=== PATIENT | male | born 1960 | race African-American/Black ===

== ENCOUNTER 2017-10-28 11:12 | Emergency (ER) | payer OTHER ==
[~2017-10-28] VITALS: Ht 167.6 cm; Wt 77.1 kg
[2017-10-28 18:21] VITALS: BP 118/82
== END 2017-10-28 18:30 | disposition home or self-care (01) ==
LOC: ER 11:12
DX: J43.9 Emphysema, unspecified (principal)
CPT/HCPCS: 71046; 87804

== ENCOUNTER 2021-05-15 20:59 | Inpatient (IN) | payer OTHER ==
[~2021-05-15] VITALS: Ht 175.3 cm; Wt 86.9 kg
[2021-05-15 22:01] LABS: Basophils # (auto) 0.1 10 ^3/uL (0-0.2); Basophils % (auto) 0.8 % (0.0-2.0); Eosinophils # (auto) 0.1 10 ^3/uL (0-0.8); Eosinophils % (auto) 0.6 % (0.0-7.0); Hematocrit 42.1 % (41.0-53.0); Hemoglobin 13.8 g/dL (13.5-17.5); Lymphocytes # (auto) 3.4 10 ^3/uL (0.4-5.4); Lymphocytes % (auto) 21.7 % (10.0-50.0); Mean Corpuscular Hemoglobin 35.3 pg (28.0-32.0); Mean Corpuscular Hgb Conc. 32.7 g/dL (32.0-36.0); Mean Corpuscular Volume 107.8 fL (80.0-100.0); Monocytes # (auto) 1.4 10 ^3/uL (0-1.3); Monocytes % (auto) 9.1 % (0.0-12.0); Neutrophils # (auto) 10.7 10 ^3/uL (1.6-8.6); Neutrophils % (auto) 67.8 % (37.0-80.0); Nucleated Red Blood Cells % 1.3 %; Red Cell Distribution Width 14.4 % (11.8-14.3); White Blood Cell 15.8 10^3/uL (4.4-10.8)
[2021-05-15 22:17] LABS: INR 1.32 (0.9-1.15); Partial Thromboplastin Time 24.5 sec (23.6-33.0)
[2021-05-15 22:38] LABS: Alkaline Phosphatase 173 U/L (45-117); Anion Gap 24 (5-15); Aspartate Aminotransferase 99 U/L (15-37); BUN/Creatinine Ratio 15.8; Blood Urea Nitrogen 32 mg/dL (7-18); Carbon Dioxide 19 mmol/L (21-32); Chloride 80 mmol/L (98-107); GFR African American 43 mL/min; GFR Non-African American 36 mL/min; Glucose 132 mg/dL (74-106); Sodium 123 mmol/L (136-145)
[2021-05-15 22:39] LABS: Alanine Aminotransferase 26 U/L (16-61); Albumin 2.2 g/dL (3.4-5.0); Bilirubin, Total 4.2 mg/dL (0.2-1.0); Calcium 7.3 mg/dL (8.5-10.1); Magnesium 1.4 mg/dL (1.6-2.6)
[2021-05-15 22:45] LABS: Potassium 2.5 mmol/L (3.5-5.1)
[2021-05-15] MEDS ORDERED: POTASSIUM CHL 20MEQ/100ML 100 ML IV STA (23:07)
[2021-05-15] MEDS ORDERED: LACTATED RINGER'S 1,000 ML IV ONE (23:15)
[2021-05-15] MEDS: MAGNESIUM SULFATE 1GM/100ML 100 ML IV SCH (23:45)
[2021-05-16] MEDS: MAGNESIUM SULFATE 1GM/100ML 100 ML IV SCH (00:33)
[2021-05-16 00:42] LABS: Lactic Acid w/Reflex 5.7 mmol/L (0.4-2.0)
[2021-05-16] MEDS ORDERED: LACTATED RINGER'S 1,000 ML IV ONE (02:45)
[2021-05-16] MEDS ORDERED: CIPROFLOXACIN 400MG/200ML 200 ML IV ONE (02:45)
[2021-05-16] MEDS ORDERED: metroNIDAZOLE 500MG/100ML 100 ML IV ONE (02:45)
[2021-05-16] MEDS ORDERED: POTASSIUM CHL 20MEQ/100ML 100 ML IV STA (04:34)
[2021-05-16] MEDS ORDERED: ACETAMINOPHEN 325 MG TAB PO PRN (05:00)
[2021-05-16] MEDS ORDERED: DOCUSATE SOD 100 MG CAP PO PRN (05:00)
[2021-05-16] MEDS ORDERED: HYDROcodone-ACET 5/325MG TAB PO PRN (05:00)
[2021-05-16] MEDS ORDERED: ONDANSETRON HCL 4 MG/2 ML VIAL IV PRN (05:00)
[2021-05-16] MEDS: SODIUM CHLORIDE 0.9% 1,000 ML IV SCH ×2 (05:26→17:00)
[2021-05-16 06:10] LABS: Urine Bacteria NONE SEEN /hpf (None Seen); Urine Blood Negative /uL (Negative); Urine Budding Yeast OCCASIONAL /hpf (None Seen); Urine Specific Gravity 1.019 (1.001-1.035); Urine WBC 4 /hpf (0 - 3)
[2021-05-16] MEDS ORDERED: cefTRIAXone 1GM/50ML D5W 50 ML IV ONE (10:45)
[2021-05-16] MEDS: PANTOPRAZOLE 40 MG TAB PO SCH ×2 (10:46→22:31)
[2021-05-16] MEDS: cefTRIAXone 1GM/50ML D5W 50 ML IV SCH (10:46)
[2021-05-16] MEDS: metroNIDAZOLE 500MG/100ML 100 ML IV SCH ×2 (14:38→22:31)
[2021-05-16] MEDS ORDERED: RIV20T PO (15:19)
[2021-05-16] MEDS ORDERED: POTA-220 PO (15:19)
[2021-05-16 17:10] VITALS: BP 110/73
[2021-05-16] MEDS ORDERED: RIVAROXABAN 20 MG TAB PO SCH (18:00)
[2021-05-16] MEDS ORDERED: POTASSIUM CHLORIDE 60 MEQ, LIDOCAINE 1% (LOCAL ANESTH.) 6 ML in SODIUM CHL 0.9% 500 ML IV ONE (18:00)
[2021-05-16] MEDS: Ensure HIGH Protein Chocolate 8oz Bottle PO SCH (18:35)
[2021-05-16 19:23] LABS: BUN/Creatinine Ratio 21.4; Calcium 7.1 mg/dL (8.5-10.1)
[2021-05-16 19:39] LABS: Potassium 2.7 mmol/L (3.5-5.1)
[2021-05-16 20:00] VITALS: BP 94/53
[2021-05-16] MEDS: HYDROCORTONE 1% TOPICAL CREAM 30 GM TUBE TOP SCH (22:00)
[2021-05-16 23:06] VITALS: BP 94/53
[2021-05-17] MEDS: SODIUM CHLORIDE 0.9% 1,000 ML IV SCH (04:00)
[2021-05-17 05:16] VITALS: BP 92/62
[2021-05-17] MEDS: metroNIDAZOLE 500MG/100ML 100 ML IV SCH ×3 (05:40→23:45)
[2021-05-17 05:46] LABS: Basophils # (auto) 0 10 ^3/uL (0-0.2); Eosinophils # (auto) 0.1 10 ^3/uL (0-0.8); Lymphocytes # (auto) 2.3 10 ^3/uL (0.4-5.4); Neutrophils % (auto) 59.6 % (37.0-80.0); Red Cell Distribution Width 14.3 % (11.8-14.3)
[2021-05-17 05:49] LABS: Basophils % (auto) 0.4 % (0.0-2.0); Eosinophils % (auto) 0.6 % (0.0-7.0); Hematocrit 28.7 % (41.0-53.0); Hemoglobin 10.2 g/dL (13.5-17.5); Lymphocytes % (auto) 23.9 % (10.0-50.0); Mean Corpuscular Hemoglobin 37.2 pg (28.0-32.0); Mean Corpuscular Hgb Conc. 35.5 g/dL (32.0-36.0); Monocytes # (auto) 1.5 10 ^3/uL (0-1.3); Monocytes % (auto) 15.5 % (0.0-12.0); Neutrophils # (auto) 5.6 10 ^3/uL (1.6-8.6); Nucleated Red Blood Cells % 1.6 %; Red Blood Cells 2.74 10^6/uL (4.5-5.90); White Blood Cell 9.5 10^3/uL (4.4-10.8)
[2021-05-17 05:55] LABS: INR 1.43 (0.9-1.15)
[2021-05-17 06:28] LABS: Albumin 1.6 g/dL (3.4-5.0); BUN/Creatinine Ratio 20.3; Calcium 7.1 mg/dL (8.5-10.1); Magnesium 1.6 mg/dL (1.6-2.6); Potassium 3.4 mmol/L (3.5-5.1)
[2021-05-17 06:31] LABS: Total Protein 5.1 g/dL (6.4-8.2)
[2021-05-17] MEDS: Ensure HIGH Protein Chocolate 8oz Bottle PO SCH ×3 (08:00→18:28)
[2021-05-17] MEDS: PANTOPRAZOLE 40 MG TAB PO SCH ×2 (08:46→23:45)
[2021-05-17] MEDS: cefTRIAXone 1GM/50ML D5W 50 ML IV SCH (08:46)
[2021-05-17 09:01] VITALS: BP 92/56
[2021-05-17] MEDS: HYDROCORTONE 1% TOPICAL CREAM 30 GM TUBE TOP SCH ×2 (09:08→23:46)
[2021-05-17] MEDS ORDERED: SODIUM CHLORIDE 0.9% 1,000 ML IV SCH (11:00)
[2021-05-17] MEDS ORDERED: POTASSIUM CHL 20 Meq TABLET PO ONE (11:00)
[2021-05-17 13:00] VITALS: BP 95/69
[2021-05-17 17:02] VITALS: BP 100/69
[2021-05-17] MEDS ORDERED: RIVAROXABAN 20 MG TAB PO SCH (18:00)
[2021-05-17 22:00] VITALS: BP 90/59
[2021-05-18 05:00] VITALS: BP 91/61
[2021-05-18] MEDS: metroNIDAZOLE 500MG/100ML 100 ML IV SCH (05:43)
[2021-05-18 05:49] LABS: Basophils # (auto) 0.1 10 ^3/uL (0-0.2); Eosinophils # (auto) 0.1 10 ^3/uL (0-0.8); Hemoglobin 9.3 g/dL (13.5-17.5); Monocytes # (auto) 1.5 10 ^3/uL (0-1.3); White Blood Cell 10.3 10^3/uL (4.4-10.8)
[2021-05-18 05:54] LABS: Basophils % (auto) 0.6 % (0.0-2.0); Eosinophils % (auto) 0.7 % (0.0-7.0); Hematocrit 26.6 % (41.0-53.0); Lymphocytes # (auto) 3.3 10 ^3/uL (0.4-5.4); Lymphocytes % (auto) 32.1 % (10.0-50.0); Mean Corpuscular Hemoglobin 36.9 pg (28.0-32.0); Mean Corpuscular Volume 105.3 fL (80.0-100.0); Monocytes % (auto) 14.8 % (0.0-12.0); Neutrophils # (auto) 5.3 10 ^3/uL (1.6-8.6); Neutrophils % (auto) 51.8 % (37.0-80.0); Nucleated Red Blood Cells % 1.5 %; Red Blood Cells 2.52 10^6/uL (4.5-5.90); Red Cell Distribution Width 14.4 % (11.8-14.3)
[2021-05-18 06:20] LABS: Potassium 3.2 mmol/L (3.5-5.1)
[2021-05-18 06:29] LABS: Calcium 7.1 mg/dL (8.5-10.1)
[2021-05-18] MEDS: Ensure HIGH Protein Chocolate 8oz Bottle PO SCH ×2 (07:52→12:57)
[2021-05-18] MEDS: cefTRIAXone 1GM/50ML D5W 50 ML IV SCH (08:56)
[2021-05-18 09:00] VITALS: BP 107/76
[2021-05-18] MEDS: PANTOPRAZOLE 40 MG TAB PO SCH (09:29)
[2021-05-18] MEDS: HYDROCORTONE 1% TOPICAL CREAM 30 GM TUBE TOP SCH (09:30)
[2021-05-18] MEDS ORDERED: POTASSIUM CHL 20 Meq TABLET PO ONE (11:00)
== END 2021-05-18 12:57 | disposition home or self-care (01) | DRG 871 ==
LOC: EDBD 20:59 → ER 21:00 → OVERFLOW 05-16 04:51 → CENTRAL 05-16 16:46
PROVIDERS: ADMIT Nurse Practitioner; ATTEND Internal Medicine
DX: A41.9 Sepsis, unspecified organism (principal); E43 Unspecified severe protein-calorie malnutrition; N17.0 Acute kidney failure with tubular necrosis; E87.2 Acidosis; D68.9 Coagulation defect, unspecified; E87.1 Hypo-osmolality and hyponatremia; K57.32 Diverticulitis of large intestine without perforation or abscess without bleeding; I82.412 Acute embolism and thrombosis of left femoral vein; E87.8 Other disorders of electrolyte and fluid balance, not elsewhere classified; E87.6 Hypokalemia; E83.42 Hypomagnesemia; N18.30 Chronic kidney disease, stage 3 unspecified; L30.9 Dermatitis, unspecified; F10.10 Alcohol abuse, uncomplicated; Z20.822 Contact with and (suspected) exposure to COVID-19; F17.210 Nicotine dependence, cigarettes, uncomplicated; K70.40 Alcoholic hepatic failure without coma; K76.0 Fatty (change of) liver, not elsewhere classified; M89.8X9 Other specified disorders of bone, unspecified site; Z86.718 Personal history of other venous thrombosis and embolism; Z86.711 Personal history of pulmonary embolism
CPT/HCPCS: 36415; 71045; 74176; 78306; 80048; 80053; 81001; 83605; 83735; 83880; 84132; 84484; 85025; 85379; 85610; 85730; 87040; 87076; 87426; 93005; 93970; 96365; 96366; 96367; 96368; G0378; J0696; J2001; J3480; J3490

== ENCOUNTER 2021-06-25 14:27 | Inpatient (IN) | payer OTHER ==
[~2021-06-25] VITALS: Ht 180.3 cm; Wt 88.5 kg
[~2021-06-25 14:27] MED LIST: POTA-220 PO; RIV20T PO
[2021-06-25] MEDS ORDERED: NOREPINEPHRINE 8 MG/250ML KIT 250 ML IV ONE (14:39)
[2021-06-25] MEDS ORDERED: DOPamine 1600MCG/ML D5W 250 ML IV ONE (14:39)
[2021-06-25] MEDS ORDERED: MIDAZOLAM DRIP 50 mg/50mL 50 ML IV SCH (14:45)
[2021-06-25] MEDS ORDERED: fentaNYL Drip 2500mCg/250mlNS 250 ML IV SCH (14:45)
[2021-06-25] MEDS ORDERED: NOREPINEPHRINE 8 MG/250ML KIT 250 ML IV SCH ×2 (14:45→15:00)
[2021-06-25] MEDS ORDERED: DOPamine 1600MCG/ML D5W 250 ML IV SCH (15:00)
[2021-06-25] MEDS: PHENYLEPHRINE IV 250 ML IV SCH ×2 (15:00→17:11)
[2021-06-25] MEDS ORDERED: PHENYLEPHRINE IV 250 ML IV ONE (15:02)
[2021-06-25 15:25] LABS: Hematocrit 36.4 % (41.0-53.0); Mean Corpuscular Hemoglobin 36.5 pg (28.0-32.0); Mean Corpuscular Hgb Conc. 30.1 g/dL (32.0-36.0); Mean Corpuscular Volume 121.3 fL (80.0-100.0); Red Cell Distribution Width 20.8 % (11.8-14.3); White Blood Cell 18.9 10^3/uL (4.4-10.8)
[2021-06-25 15:26] LABS: Basophils % (manual) 0 (0.0-2.0); Blast Cells 0; Eosinophils % (manual) 0 (0-7); Myelocytes % 0; Promyelocytes % 0; Reactive Lymphocytes 0
[2021-06-25 15:31] LABS: INR 1.86 (0.9-1.15); Partial Thromboplastin Time 45.2 sec (23.6-33.0)
[2021-06-25 15:33] LABS: Alanine Aminotransferase 47 U/L (16-61); Albumin 1.5 g/dL (3.4-5.0); Anion Gap 30 (5-15); Aspartate Aminotransferase 161 U/L (15-37); BUN/Creatinine Ratio 3.2; Blood Urea Nitrogen 6 mg/dL (7-18); Calcium 7.4 mg/dL (8.5-10.1); Carbon Dioxide 15 mmol/L (21-32); Chloride 89 mmol/L (98-107); GFR African American 48 mL/min; GFR Non-African American 40 mL/min; Glucose 82 mg/dL (74-106); Magnesium 1.9 mg/dL (1.6-2.6); Potassium 3.5 mmol/L (3.5-5.1); Sodium 134 mmol/L (136-145)
[2021-06-25 15:38] LABS: Alkaline Phosphatase 211 U/L (45-117); Bilirubin, Total 5.6 mg/dL (0.2-1.0); Total Protein 6.4 g/dL (6.4-8.2)
[2021-06-25] MEDS ORDERED: VANCOMYCIN PER PHARMACY 0 MG IV SCH (15:45)
[2021-06-25] MEDS ORDERED: PIPERACILLIN-TAZOB 3.375GM 100 ML IV ONE ×2 (15:45→16:45)
[2021-06-25 15:50] LABS: Band Neutrophils % (manual) 2; Lactic Acid w/Reflex 20.1 mmol/L (0.4-2.0); Lymphocytes % (manual) 33 (10.0-50.0); Metamyelocytes % 1; Monocytes % (manual) 5 (0-12)
[2021-06-25 16:21] VITALS: BP 95/64
[2021-06-25] MEDS ORDERED: NITROGLYCERIN 0.4 MG SL TAB SL PRN (16:30)
[2021-06-25] MEDS ORDERED: MORPHINE SULFATE INJECTION 2 MG/ML SYRG IV PRN (16:30)
[2021-06-25] MEDS ORDERED: SODIUM BICARBONATE 8.4 % INJ 50ML VIAL IV ONE (16:30)
[2021-06-25] MEDS ORDERED: SODIUM BICARBONATE 50ML VIAL 150 ML in D5W 5% 1,000 ML IV SCH (16:30)
[2021-06-25] MEDS ORDERED: VANCOMYCIN 1GM/250ML 250 ML IV ONE (18:00)
[2021-06-25] MEDS ORDERED: PIPERACILLIN-TAZOB 2.25GM 50 ML IV SCH (18:00)
[2021-06-25 18:30] VITALS: BP 61/35
[2021-06-25] MEDS ORDERED: VASOPRESSIN 50 UNITS in D5W 5% 247.5 ML IV SCH (18:30)
[2021-06-26] MEDS ORDERED: PIPERACILLIN-TAZOB 3.375GM 100 ML IV SCH
== END 2021-06-25 19:08 | DRG 871 ==
LOC: ER 14:27 → TELE 16:40
PROVIDERS: ADMIT Nurse Practitioner Acute Care; ATTEND Nurse Practitioner Acute Care
PROC: 5A1935Z Respiratory Ventilation, Less than 24 Consecutive Hours (ICD-10-PCS; principal; 2021-06-25)
PROC: 0BH17EZ Insertion of Endotracheal Airway into Trachea, Via Natural or Artificial Opening (ICD-10-PCS; 2021-06-25)
PROC: 30233N1 Transfusion of Nonautologous Red Blood Cells into Peripheral Vein, Percutaneous Approach (ICD-10-PCS; 2021-06-25)
PROC: 5A12012 Performance of Cardiac Output, Single, Manual (ICD-10-PCS; 2021-06-25)
PROC: 06HY33Z Insertion of Infusion Device into Lower Vein, Percutaneous Approach (ICD-10-PCS; 2021-06-25)
PROC: 04HY32Z Insertion of Monitoring Device into Lower Artery, Percutaneous Approach (ICD-10-PCS; 2021-06-25)
DX: A41.9 Sepsis, unspecified organism (principal); G93.41 Metabolic encephalopathy; J96.01 Acute respiratory failure with hypoxia; J96.02 Acute respiratory failure with hypercapnia; R65.21 Severe sepsis with septic shock; D68.9 Coagulation defect, unspecified; G93.1 Anoxic brain damage, not elsewhere classified; N17.9 Acute kidney failure, unspecified; D75.89 Other specified diseases of blood and blood-forming organs; E66.9 Obesity, unspecified; F10.20 Alcohol dependence, uncomplicated; F17.210 Nicotine dependence, cigarettes, uncomplicated; I10 Essential (primary) hypertension; I46.9 Cardiac arrest, cause unspecified; J44.9 Chronic obstructive pulmonary disease, unspecified; K72.90 Hepatic failure, unspecified without coma; Z86.711 Personal history of pulmonary embolism; Z68.27 Body mass index [BMI] 27.0-27.9, adult; Z86.718 Personal history of other venous thrombosis and embolism
CPT/HCPCS: 31500; 36415; 36556; 36600; 71045; 80053; 80320; 82805; 83605; 83735; 84484; 85007; 85027; 85610; 85730; 86850; 86900; 86901; 86920; 87040; 87070; 87077; 87186; 87205; 93970; 94002; 96365; 99291; G0378; J2250; J2543; J7060